=== PATIENT | male | born 1940 | race Caucasian/White ===

== ENCOUNTER 2017-05-31 11:52 | Inpatient (IN) | payer OTHER ==
[2017-05-31] MEDS ORDERED: IBUPROFEN 600 MG TAB PO ONE (12:57)
[2017-05-31] MEDS ORDERED: ONDANSETRON 4 MG/2 ML VIAL IVP ONE (13:04)
--- NOTE | 2017-05-31 13:12 | EDPHY ---
H & P Time Seen by Provider: 05/31/17 12:02 HPI/ROS: Chief complaint. Fall off horse HPI. 77-year-old male presents emergency department with after fall off horse. The horse bucked and he fell off and ended up with his head under the fence. Apparent loss of consciousness for unknown duration. Patient complains of pain to the back of his head as well as his neck as well as his left hip area. Denies chest pain or trouble breathing. No abdominal pain. Unable to walk since the injury occurred. ROS Constitutional. no fever/chills, no weakness Eyes. no problems with vision ENT. no sore throat, no nasal drainage Cardiovascular. no chest pain Respiratory. no shortness of breath, no cough Abdominal. no abdominal pain, no nausea/vomiting, no diarrhea . no problems urinating MS. neck pain, left hip pain Skin. no rash Lymph. no swollen glands Neuro. Decreased ability to walk and headache posteriorly Past Medical/Surgical History: Hypertension, dyslipidemia Social History: Single, nonsmoker, no alcohol Smoking Status: Never smoked Physical Exam: General Appearance: Alert well-developed male moderate distress vital signs are stable Eyes: Pupils equal and round no pallor or injection. ENT, no hemotympanum or Collazo sign. No oral pharyngeal or dental trauma. Respiratory: There are no retractions, lungs are clear to auscultation. Cardiovascular: Regular rate and rhythm. Gastrointestinal: Abdomen is soft and nontender, no masses, bowel sounds normal. Neurological: Awake and alert, sensory and motor exams grossly normal. Skin: Warm and dry, no rashes. Abrasion to the posterior scalp not requiring sutures Musculoskeletal: Neck is diffusely tender especially posteriorly. Left hip pain Extremities symmetrical, full range of motion. Psychiatric: Patient is oriented X 3, there is no agitation. Constitutional: Initial Vital Signs Temperature (C) 36.3 C 05/31/17 11:56 Heart Rate 76 05/31/17 11:56 Respiratory Rate 18 05/31/17 11:56 Blood Pressure 132/67 H 05/31/17 11:56 O2 Sat (%) 100 05/31/17 11:56 O2 Delivery Mode Room Air Allergies/Adverse Reactions: Penicillins Allergy (Unknown, Verified 10/26/12 09:58) Home Medications: Medication Instructions Recorded Atorvastatin Calcium [Lipitor 80 80 mg PO HS 11/04/17 mg] Lisinopril [Zestril 40 mg (*)] 40 mg PO HS 05/31/17 Terazosin HCl [Hytrin 2 MG (*)] 4 mg PO BID 05/31/17 Medical Decision Making - Diagnostics Imaging Results: Imaging Impressions Head CT 05/31/17 11:59 Impression: 1. Small foci of subarachnoid hemorrhage left posterior frontal lobe superiorly in a parasagittal location and anteriorly, in the central sulcus, as well as anterior to the left temporal lobe. 2. No intraparenchymal hemorrhage or subdural hemorrhage seen. 3. No calvarial fracture. Findings discussed with Abram Handley M.D. at 12:55 hour, 05/31/2017. Hip X-Ray 05/31/17 11:59 Impression: 1. Diastases of the symphysis and left SI joint. 2. Possible avulsion fracture just inferior and lateral to the left ischium. If indicated, consider CT imaging for further characterization. Cervical Spine CT 05/31/17 12:01 Impression: 1. No acute abnormality seen about the cervical spine. 2. Degenerative disk disease most prominent at C5-C6 and at C6-C7 with associated spinal and neuroforaminal stenoses. Abdomen CT 05/31/17 13:04 Impression: 1. Moderate diastases of the symphysis with mild diastases of the left SI joint. A portion of the bladder extends between the symphysis. 2. Mild soft tissue contusion along the left pelvic sidewall and associated with the symphysis diastases. 3. Granular material within the dependent aspect of the bladder as well as a small 2 mm bladder calculus. 4. Nonobstructive calculus lower pole left kidney along with bilateral renal cysts evident. Chest X-Ray 05/31/17 13:04 Impression: 1. No active cardiopulmonary disease seen. CT pelvis and abdomen shows moderate diastasis of the symphysis pubis and then diastasis of the left SI joint. Procedures: IV normal saline, monitor. Morphine for pain. Zofran for nausea ED Course/Re-evaluation: Re-evaluation patient is stable. He and I discussed imaging study results, treatment plan including need for Admission. He expresses understanding and agreement I have consulted and discussed the case with Dr. Villela on-call for trauma surgery who will see the patient in the emergency department I consulted discussed the case with Dr. Mares, orthopedics who will see The patient in the emergency department. I consulted and discussed the case with Dr. Bhardwaj, neurosurgery who will see the patient in the emergency department Differential Diagnosis: I considered intracranial bleeding and skull fracture. Cervical spine injury. Intra-abdominal and pelvis injury. - Data Points Laboratory Results: Laboratory Results 05/31/17 13:10 05/31/17 13:10 05/31/17 05/31/17 05/31/17 13:10 13:10 13:10 WBC 11.71 10^3/uL H 10^3/uL (3.80-9.50) RBC 4.39 10^6/uL L 10^6/uL (4.40-6.38) Hgb 14.6 g/dL g/dL (13.7-17.5) Hct 41.4 % % (40.0-51.0) MCV 94.3 fL fL (81.5-99.8) MCH 33.3 pg pg (27.9-34.1) MCHC 35.3 g/dL g/dL (32.4-36.7) RDW 12.6 % % (11.5-15.2) Plt Count 163 10^3/uL 10^3/uL (150-400) MPV 10.7 fL fL (8.7-11.7) Neut % (Auto) 81.4 % H % (39.3-74.2) Lymph % (Auto) 10.3 % L % (15.0-45.0) [place] % (Auto) 6.7 % % (4.5-13.0) Eos % (Auto) 0.8 % % (0.6-7.6) Baso % (Auto) 0.3 % % (0.3-1.7) Nucleat RBC Rel Count 0.0 % % (0.0-0.2) Absolute Neuts (auto) 9.54 10^3/uL H 10^3/uL (1.70-6.50) Absolute Lymphs (auto) 1.21 10^3/uL 10^3/uL (1.00-3.00) Absolute Monos (auto) 0.78 10^3/uL 10^3/uL (0.30-0.80) Absolute Eos (auto) 0.09 10^3/uL 10^3/uL (0.03-0.40) Absolute Basos (auto) 0.03 10^3/uL 10^3/uL (0.02-0.10) Absolute Nucleated RBC 0.00 10^3/uL 10^3/uL (0-0.01) Immature Gran % 0.5 % % (0.0-1.1) Immature Gran # 0.06 10^3/uL 10^3/uL (0.00-0.10) PT 15.0 SEC SEC (12.0-15.0) INR 1.18 H (0.83-1.16) APTT 25.8 SEC SEC (23.0-38.0) Sodium 147 mEq/L H mEq/L (134-144) Potassium 4.6 mEq/L mEq/L (3.5-5.2) Chloride 111 mEq/L H mEq/L (97-110) Carbon Dioxide 25 mEq/l mEq/l (22-31) Anion Gap 11 mEq/L mEq/L (8-16) BUN 22 mg/dL mg/dL (7-23) Creatinine 1.2 mg/dL mg/dL (0.7-1.3) Estimated GFR 59 Glucose 106 mg/dL H mg/dL (70-100) Calcium 9.6 mg/dL mg/dL (8.5-10.4) Medications Given: Morphine Sulfate (Morphine) 1 - 2 mg IVP Q1HR PRN PRN Reason: Pain, Severe Unable to Take PO Stop: 06/10/17 14:13 Last Admin: 05/31/17 15:00 Dose: 2 mg Discontinued Medications Ibuprofen (Motrin) 600 mg PO EDNOW ONE Stop: 05/31/17 12:58 Last Admin: 05/31/17 13:02 Dose: Not Given Morphine Sulfate (Morphine) 6 mg IVP EDNOW ONE Stop: 05/31/17 13:05 Last Admin: 05/31/17 13:14 Dose: 6 mg Ondansetron HCl (Zofran) 4 mg IVP EDNOW ONE Stop: 05/31/17 13:05 Last Admin: 05/31/17 13:14 Dose: 4 mg Departure - Departure Disposition: [facility] Acute Clinical Impression: Multiple trauma Condition: Good
[2017-05-31 13:17] LABS: PLATELET COUNT 163 10^3/uL (150-400)
[2017-05-31 13:27] LABS: INR 1.18 (0.83-1.16)
[2017-05-31] MEDS ORDERED: IOPAMIDOL (ISOVUE-300) 100 ML BTL ONE (13:42)
[2017-05-31] MEDS ORDERED: ONDANSETRON 4 MG/2 ML VIAL IVP PRN ×3 (14:14→19:01)
[2017-05-31] MEDS ORDERED: HYDROCODONE/APAP 5/325 TAB PO PRN (14:14)
[2017-05-31] MEDS ORDERED: ACETAMINOPHEN 325 MG TAB PO PRN (14:14)
--- NOTE | 2017-05-31 14:38 | GCON ---
[f rep st] CONSULTATION DATE OF CONSULTATION: 05/31/2017 REFERRING PHYSICIAN: Abram Handley MD REASON FOR EVALUATION: Trauma. 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 He reports getting thrown beneath the fence. He denies loss of consciousness to my exam. Per ED records, he was possibly amnestic to the immediate events surrounding the fall. He reports that he was ambulatory with complaints of left hip pain only after the injury. At present time, he is without headaches, visual changes, nausea, or vomiting. He denies neck pain. He reports chronic left shoulder pain, which is unchanged since the fall. He denies chest pains or shortness of breath. He denies abdominal complaints. He does report of left lower quadrant/hip pain. PAST MEDICAL HISTORY: Hypertension, hyperlipidemia. PAST SURGICAL HISTORY: Denies. MEDICATIONS: Uncertain antihypertensive, as well as a cholesterol med. ALLERGIES: Penicillin. SOCIAL HISTORY: He lives independently in a 2-story house. Denies significant alcohol use. Denies smoking. FAMILY HISTORY: Noncontributory. PHYSICAL EXAMINATION: VITAL SIGNS: Temperature 36, blood pressure 130/70, pulse 76, respirations 18. GENERAL: Patient is alert, appropriate, comfortable at the present time. HEENT: Superficial occipital scalp laceration. NECK: Minimal cervical spine tenderness, not increased with head rotation. Trachea midline without crepitus. HEART: Regular without murmurs. LUNGS: Clear bilaterally. CHEST WALL: Nontender without step-offs or deformities. ABDOMEN: Soft, nontender, nondistended. No abdominal ecchymosis. Minimal pubic tenderness. EXTREMITIES: Mild left hip tenderness. Normal bilateral upper and lower extremities without step-offs, deformities, or abrasions. Radial as well as dorsalis pedis and posterior tibial pulses 2+ bilaterally. BACK: Nontender thoracic spine. Notable lower lumbar spine tenderness and sacral tenderness. IMAGING: Head CT with multiple areas of scattered subarachnoid hemorrhages. No shift. No subdural, intraparenchymal, or epidural hematoma. AP hip with left SI joint and pubic symphysis diastasis. CT cervical spine: Unremarkable other than chronic degenerative disease. Images were directly reviewed on PACS with radiologist on-call. LABORATORY: White count 12, hemoglobin 15, platelets of 160. INR 1.18. Electrolytes within reference range. IMPRESSION: 1. Fall from horse. 2. Small subarachnoid hemorrhage without neurologic compromise. 3. Left sacroiliac and pubic symphysis diastasis. 4. Superficial occipital abrasion. PLAN: 1. Patient is being admitted for further evaluation and management. 2. Serial head imaging will be performed. Neck was clinically cleared by Dr. Bhardwaj from Neurosurgical Service. 3. Further abdominopelvic CT imaging pending for further assessment of pelvic diastasis. 4. Activity plans to be determined post imaging. 5. Patient was seen and evaluated by Dr. Mares in the emergency room. No other acute traumatic issues identified at this time. 6. Care plan was reviewed with the patient, brother, colleague, Dr. Mares, Dr. Bhardwaj, as well as with Dr. Handley. /[id number]/MODL MTDD
[2017-05-31] MEDS ORDERED: BUPIVACAINE 0.5% 30 ML SDV ONE (16:21)
[2017-05-31] MEDS ORDERED: BACITRACIN 50,000 UNITS/10 ML SYR IRR ONE (16:22)
[2017-05-31] MEDS ORDERED: POLYMYXIN B SULFATE 500,000 UNIT/10 ML SYR IRR ONE (16:22)
--- NOTE | 2017-05-31 16:36 | PDANEPAE ---
ANE History of Present Illness 77 yo for orif pelvis ANE Past Medical History - Cardiovascular History Hx Hypertension: Yes Hx Arrhythmias: No Hx Chest Pain: No Hx Coronary Artery / Peripheral Vascular Disease: No Hx CHF / Valvular Disease: No Hx Palpitations: No - Pulmonary History Hx COPD: No Hx Asthma/Reactive Airway Disease: No Hx Recent Upper Respiratory Infection: No Hx Oxygen in Use at Home: No Hx Sleep Apnea: No - Endocrine History Hx Diabetes: No - Chronic Pain History Chronic Pain: No ANE Review of Systems Review of Systems: - Exercise capacity METS (RN): 4 METS ANE Patient History - Allergies Allergies/Adverse Reactions: Penicillins Allergy (Unknown, Verified 10/26/12 09:58) - Home Medications Home Medications: Atorvastatin Calcium [Lipitor 80 mg] 80 mg PO HS 05/31/17 [Last Taken 05/30/17] Lisinopril [Zestril 40 mg (*)] 40 mg PO HS 05/31/17 [Last Taken 05/30/17] Terazosin HCl [Hytrin 2 MG (*)] 4 mg PO BID 05/31/17 [Last Taken 05/31/17] - Anes Hx Anes Hx: no prior problems - Smoking Hx Smoking Status: Never smoked ANE Labs/Vital Signs - Labs Result Diagrams: 05/31/17 13:10 05/31/17 13:10 - Vital Signs Blood Pressure: 122/54 Heart Rate: 83 Respiratory Rate: 18 O2 Sat (%): 92 Height: 5 ft 10 in Weight: 83.915 kg ANE Physical Exam - Airway Mallampati Score: Class 2 Mouth exam: normal dental/mouth exam - Pulmonary Pulmonary: no respiratory distress - Cardiovascular Cardiovascular: regular rate and rhythym - ASA Status ASA Status: II, E ANE Anesthesia Plan Anesthesia Plan: general endotracheal anesthesia
[2017-05-31] MEDS ORDERED: fentaNYL 100 MCG/2 ML INJ ONE (16:39)
[2017-05-31] MEDS ORDERED: REMIFENTANIL HCL 1 MG VIAL ONE (16:39)
[2017-05-31] MEDS ORDERED: PROPOFOL/EMULSION 500 MG/50 ML BOTTLE IV ONE (16:40)
[2017-05-31] MEDS ORDERED: ROCURONIUM 100 MG/10 ML VIAL ONE (16:42)
[2017-05-31] MEDS ORDERED: ceFAZolin 2 GM/DEXTROSE 100 ML IV ONE (16:46)
[2017-05-31] MEDS ORDERED: ceFAZolin 2 GM/SWFI 20 ML SYR IVP ONE (16:46)
--- NOTE | 2017-05-31 16:48 | GCON ---
[f rep st] CONSULTATION ORTHOPEDIC CONSULTATION DATE OF CONSULTATION: 05/31/2017 REASON FOR CONSULTATION: Pelvic fracture dislocation with diastasis of anterior pubic symphysis and widening of the left sacroiliac articulation. 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 He went face down and hit a fence. He indicates he was a little stunned, but did not feel he lost consciousness. He had difficulty bearing weight. He has s ignificant pain in his left hip. He was brought to the emergency room alert and oriented. PAST MEDICAL HISTORY: Positive for hypertension, hyperlipidemia. PAST SURGICAL HISTORY: None. MEDICATIONS: Uncertain type of antihypertensive and cholesterol medication. ALLERGIES: To penicillin. SOCIAL HISTORY: He resides alone in a two-story house. Nonsmoker. Minimal alcohol use. PHYSICAL EXAMINATION: GENERAL: Patient is alert, oriented, and cooperative exam. CHEST: Clear to auscultation. CARDIAC: Regular rate and rhythm. ABDOMEN: Decreased bowel sounds. No tympany. Th ere is no significant rebound tenderness. MUSCULOSKELETAL: Moderate tenderness with compression ove r the anterior iliac crests. Mild tenderness in the symphysis pubis. No catheter in place. He has tenderness over the left sacroiliac joint and left paraspinal area. He is able to move the legs. Se nsation is intact to light touch in all dermatomes. Pulses 2+ dorsalis pedis, posterior tibialis. IMAGING DATA: Head CT shows small areas of scattered subarachnoid hemorrhage. There is no shift. N o subdural. No intraparenchymal bleed. No epidural hematoma. X-rays of the pelvis show pubic symph ysis diastasis of approximately 6 cm. There is widening of the left SI joint seen both on plain film s and CT scan of the pelvis. CT of the abdomen shows no obvious intraabdominal bleed. The bladder i s mildly distended and pressing against the open symphysis. ASSESSMENT: Pelvic diastasis secondary to separation of pubic symphysis and widening of the left sac roiliac articulation. PLAN: We anticipate performing an open reduction internal fixation of the pubic symphyseal injury wi th plating. Dr. Scott has been consulted, along with me, and we will proceed with the surgery this ev ening. Patient will require use of a walker and therapy to mobilize afterwards. Anticipate placing a Chadwick after anesthesia is performed. /[id number]/MODL
[2017-05-31] MEDS ORDERED: ceFAZolin 2 GM/SWFI 2 GM/20 ML SYR IVP ONE (17:00)
--- NOTE | 2017-05-31 17:08 | GCON ---
[f rep st] CONSULTATION DATE OF CONSULTATION: 05/31/2017 Patient was seen and evaluated at approximately 1:15 p.m. in the [facility] Emergency Department. HISTORY OF PRESENT ILLNESS: The patient is a 77-year-old man who was riding a horse and was bucked o ff. He may have had a very brief loss of consciousness, but he is not amnestic to the event and bony mbers pretty much everything. He was complaining of pelvic and hip pain but really no other complain ts at this time. He presented to the emergency department where he was found to have diastasis of th e pubic symphysis as well as some scattered tiny traumatic subarachnoid hemorrhage. There is no mass effect or shift. He denies any chest pain or shortness of breath. No nausea, vomiting, or abdomina l pain. REVIEW OF SYSTEMS: A 10-point review of systems is negative other than that described in the HPI. PAST MEDICAL HISTORY: 1. Hypertension. 2. Hyperlipidemia. FAMILY HISTORY: Reviewed but noncontributory to this admission. SOCIAL HISTORY: The patient is single. He denies any tobacco, alcohol, or other drug use. ALLERGIES: Penicillin. MEDICATIONS: 1. Atorvastatin. 2. Lisinopril. 3. Terazosin. PHYSICAL EXAMINATION: VITAL SIGNS: Currently, he is afebrile with normal stable vital signs. CONST ITUTIONAL: Awake, alert, and oriented x3. HEENT: Pupils equal, round, and reactive to light. Extr aocular movements are intact. Face is symmetric. Tongue is midline. He has a laceration on the johnny k of the head, which appears to be relatively small. NEUROMUSCULAR: He has full 5/5 strength in all muscle groups of the upper and lower extremities; although, he does appear to have some mild weaknes s at the hip flexor, which is likely secondary to the pain of his pubic diastasis. Sensation is inta ct. Deep tendon reflexes are normal. IMAGING REVIEW: See HPI. A cervical spine CT was also negative for any fractures and positive only for some degenerative disease at multiple levels. LABORATORY REVIEW: White count 11.7, hemoglobin 14.6, hematocrit 41.4, platelet count 163,000. PT i s 15, INR is 1.18. Sodium is 147, potassium 4.6, BUN is 22, creatinine 1.2, glucose 106. ASSESSMENT/PLAN: The patient is a 77-year-old man who was thrown from a horse with a positive loss o f consciousness. He has some very tiny traumatic subarachnoid hemorrhage. [facility] service, and would be fine for general care status with q.4 hour vitals a nd neuro checks. We will repeat his CAT scan sometime later this evening to be sure that everything is stable, and otherwise just monitor his clinical exam. I do not think he needs any seizure prophyl axis or other intervention at this time. We will follow along while he is in the hospital. Thanks for the kind consultation. Sincerely, /[id number]/MODL
[2017-05-31] MEDS ORDERED: ALBUMIN 5% 250 ML BOTTLE IV ONE (17:24)
[2017-05-31] MEDS ORDERED: HYDROmorphONE/DILAUDID 2 MG/ML INJ ONE (17:52)
[2017-05-31] MEDS ORDERED: diphenhydrAMINE 25 MG CAP PO PRN (18:56)
[2017-05-31] MEDS ORDERED: PROMETHAZINE HCL 25 MG/ML INJ IVP PRN (18:56)
[2017-05-31] MEDS ORDERED: METOCLOPRAMIDE 10 MG/2 ML VIAL IVP PRN (18:56)
[2017-05-31] MEDS ORDERED: PROMETHAZINE HCL 25 MG SUPPR PR PRN (18:56)
[2017-05-31] MEDS ORDERED: ONDANSETRON DISINTEGRATING 4 MG TAB PO PRN (18:56)
[2017-05-31] MEDS ORDERED: DIPHENOXYLATE/ATROPINE LOMOTIL 1 TAB PO PRN (18:56)
[2017-05-31] MEDS ORDERED: TEMAZEPAM 15 MG CAP PO PRN (18:56)
[2017-05-31] MEDS ORDERED: CYCLOBENZAPRINE 10 MG TAB PO PRN (18:56)
[2017-05-31] MEDS ORDERED: LR 1,000 ML IV SCH (19:00)
[2017-05-31] MEDS ORDERED: NALOXONE HCL 0.4 MG/ML INJ IVP PRN (19:01)
[2017-05-31] MEDS ORDERED: HYDROmorphONE/DILAUDID 1 MG/ML INJ IVP PRN (19:01)
[2017-05-31] MEDS ORDERED: fentaNYL 100 MCG/2 ML INJ IVP PRN (19:01)
--- NOTE | 2017-05-31 19:02 | POSTANESTH ---
Post Anesthetic Evaluation Cardiovascular Status: Normal, Stable Respiratory Status: Normal, Stable Level of Consciousness/Mental Status: Can Participate in Eval Pain Control: Adequate, Prn Tx Ordered Nausea/Vomiting Control: Adequate, Prn Tx Ordered Complications Possibly Related to Anesthesia: None Noted
[2017-05-31] MEDS: ATORVASTATIN CALCIUM 40 MG TAB PO SCH (20:28)
[2017-05-31] MEDS: ACETAMINOPHEN 325 MG TAB PO SCH (20:28)
[2017-05-31] MEDS: oxyCODONE IR 5 MG TAB PO PRN (20:29)
[2017-05-31] MEDS: TERAZOSIN HCL 2 MG CAP PO SCH (20:30)
[2017-05-31] MEDS: LISINOPRIL 40 MG TAB PO SCH (20:30)
[2017-05-31] MEDS: FAMOTIDINE 20 MG TAB PO SCH (20:31)
--- NOTE | 2017-05-31 20:33 | GOP ---
[f rep st] OPERATIVE REPORT DATE OF OPERATION: 05/31/2017 SURGEON: Scott Mares MD ANESTHESIA: General. PREOPERATIVE DIAGNOSIS: Pubic symphysis diastasis with diastasis of left sacroiliac articulation. POSTOPERATIVE DIAGNOSIS: Pubic symphysis diastasis with diastasis of left sacroiliac articulation. PROCEDURE PERFORMED: Open reduction and internal fixation, pelvic fracture dislocation (pubic symphy sis diastasis with anterior plating). FINDINGS: DESCRIPTION OF PROCEDURE: Patient was taken to the operating room, administered general anesthesia, placed in the supine position. FluoroScan was positioned. Anterior incision was made through dermal , subcutaneous tissues. The linea alba fascia was delineated and the rectus was reflected. The ante rior aspect of the musculature coming off the symphysis was already exposed. The clotted blood and t issue were cleared off. The symphysis was cleared off superiorly and anteriorly. Two 4.5 screws wer e passed through each side of the pubic symphysis. These were used to clamp down the symphysis. Whe n we obtained anatomic reduction, the plate was then contoured to fit the pubic symphysis. Drill hol es were then placed across the symphysis on each side. Three 3.5 screws were utilized on each side o f the symphysis to secure the contoured plate. Intraoperative films were taken and screw lengths wer e assessed and felt to be appropriate. The symphysis was felt to be appropriately reduced. Thorough lavage performed with normal saline. The rectus abdominis fascia was closed with #1 Vicryl suture, followed by closure of the subcutaneous tissue with 2-0 Vicryl suture, followed by closure of the aixa mis with destiny. A sterile compression dressing was applied. The patient tolerated procedure well, was transferred back to Recovery in stable condition. No operative complications. IMPLANTS: 3.5 Synthes plate. CO-SURGEONS: Anika Scott MD/Scott Mares MD COMPLICATIONS: None. /[id number]/MODL
[2017-05-31] MEDS ORDERED: NON-FORMULARY NEW DRUG (Atorvastatin Calcium [Lipitor 80 Mg] 80 MG) PO SCH (21:00)
[2017-06-01] MEDS: oxyCODONE IR 5 MG TAB PO PRN ×3 (02:58→22:08)
[2017-06-01] MEDS: ceFAZolin 2 GM/DEXTROSE 100 ML IV SCH ×2 (02:59→09:39)
[2017-06-01] MEDS: ACETAMINOPHEN 325 MG TAB PO SCH ×3 (06:45→18:40)
--- NOTE | 2017-06-01 08:46 | SOAPPROG ---
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/ PUBIC RAMUS DIASTASIS SP ORIF SMALL SAH NEURO STABLE ABD SOFT AFEBRILE TERTIARY EXAM NEG CHEST CLEAR COR RR EXTR FULL PULSES Plan:?AMBULATE/ WILL NEED LOVENOX SOON 06/01/17 08:44 06/01/17 14:03 Objective: Vital Signs Temp Pulse Resp BP Pulse Ox 36.7 C 73 16 125/50 H 99 06/01/17 08:19 06/01/17 08:19 06/01/17 08:19 06/01/17 08:19 06/01/17 08:19 Laboratory Results 06/01/17 04:30 06/01/17 04:30 05/31/17 06/01/17 06/02/17 06:59 05:59 05:59 Intake Total Output Total Balance PT 15.0 SEC (12.0-15.0) 05/31/17 13:10 INR 1.18 (0.83-1.16) H 05/31/17 13:10 ICD10 Worksheet Patient Problems: Problems Problem Status Onset Multiple trauma Acute
--- NOTE | 2017-06-01 08:55 | SOAPPROG ---
[facility] Progress Note Assessment/Plan: Assessment: HD#1 s/p admit after fall from horse with tiny tSAH, pubic injury Plan: - followup scan stable - doing well, no headaches - no need for further scans unless some neurological change - no need for neurosurgical followup, but I'd be happy to see him if needed at any point - will sign off for now, please call with any questions or concerns 06/01/17 08:53 Subjective: no complaints Objective: Vital Signs Temp Pulse Resp BP Pulse Ox 36.7 C 73 16 125/50 H 99 06/01/17 08:19 06/01/17 08:19 06/01/17 08:19 06/01/17 08:19 06/01/17 08:19 Laboratory Results 06/01/17 04:30 06/01/17 04:30 05/31/17 06/01/17 06/02/17 06:59 05:59 05:59 Intake Total Output Total Balance PT 15.0 SEC (12.0-15.0) 05/31/17 13:10 INR 1.18 (0.83-1.16) H 05/31/17 13:10 AAOx3, full strength/sensation, no drift - Pending Discharge Pending Discharge Within 24 Hours: Yes Pending Discharge Within 48 Hours: Yes Pending Discharge Date: 06/02/17 Pending Discharge Time: 11:00 ICD10 Worksheet Patient Problems: Problems Problem Status Onset Multiple trauma Acute
[2017-06-01] MEDS: FAMOTIDINE 20 MG TAB PO SCH ×2 (09:39→22:04)
[2017-06-01] MEDS: TERAZOSIN HCL 2 MG CAP PO SCH ×2 (09:48→20:25)
--- NOTE | 2017-06-01 11:02 | SOAPPROG ---
SOAP Progress Note Assessment/Plan: Assessment:POD #1 ORIF pelvic fracture dislocation (pubic symphysis disastasis with anterior plating). Had small SAH, improving. Cleared by Neurosurgery unless symptoms change. Plan: Continue pain medication, transition to oral meds when able. PT/OT to evaluate-pt. feels ready to get up and try moving. WBAT with walker Ice packs to incision prn Dressing change tomorrow or sooner if needed Continue to monitor pts. calf pain, if worsening consider US to r/o DVT. Continue Antibiotics S: Pt. states that his pain is well controlled with the medication he has been given since surgery. He reports mild pain from the hips. Also reports some bilateral calf tightness, not worsening. Not sure if he injured the lower legs in the fall. No fever, REDMAN, CP, SOB. abdominal pain, N/V. Was able to eat breakfast without difficulty. O: Pt. resting comfortably, in NAD, answers all questions appropriately. Respirations unlabored. Pt. is DNVI in BLE. Mild calf pain to squeeze bilateral calves, no swelling or warmth palpated. Dressing on abdomen is intact with no discharge. 06/01/17 10:54 Objective: Vital Signs Temp Pulse Resp BP Pulse Ox 36.7 C 73 16 125/50 H 99 06/01/17 08:19 06/01/17 08:19 06/01/17 08:19 06/01/17 08:19 06/01/17 08:19 Laboratory Results 06/01/17 04:30 06/01/17 04:30 05/31/17 06/01/17 06/02/17 06:59 05:59 05:59 Intake Total Output Total Balance PT 15.0 SEC (12.0-15.0) 05/31/17 13:10 INR 1.18 (0.83-1.16) H 05/31/17 13:10 ICD10 Worksheet Patient Problems: Problems Problem Status Onset Multiple trauma Acute
--- NOTE | 2017-06-01 14:03 | ASMTCMCOM ---
CM Note CM Note Notes: Pt admitted with pelvic fx after fall from horse. Pt had ORIF. OT evals are home vs home care. No PT evals yet. CM will follow for DC needs. Date Signed: 06/01/2017 02:03 PM Electronically Signed By:Alexandra Bird LCSW
[2017-06-01] MEDS ORDERED: LACTULOSE 20 GM/30 ML UDCUP PO PRN (16:40)
[2017-06-01] MEDS ORDERED: BISACODYL 10 MG SUPP PR PRN (16:40)
[2017-06-01] MEDS ORDERED: MAGNESIUM HYDROXIDE 30 ML UDCUP PO PRN (16:40)
[2017-06-01] MEDS ORDERED: POLYETHYLENE GLYCOL 3350 17 GM PKT PO PRN (16:40)
[2017-06-01] MEDS: SENNOSIDES/DOCUSATE SODIUM TAB PO SCH (20:24)
[2017-06-01] MEDS: ATORVASTATIN CALCIUM 40 MG TAB PO SCH (20:24)
[2017-06-01] MEDS: LISINOPRIL 40 MG TAB PO SCH (20:24)
[2017-06-02] MEDS: ACETAMINOPHEN 325 MG TAB PO SCH ×4 (00:49→17:52)
--- NOTE | 2017-06-02 07:36 | SOAPPROG ---
SOAP Progress Note Assessment/Plan: Assessment/Plan: Pelvic fracture/dislocation s/p ORIF pelvic fracture dislocation (pubic symphysis disastasis with anterior plating), POD#2 - Cont PT/OT, WBAT, ambulate with walker - Cont current pain meds as tolerated, cont to encourage PO, ice PRN - Had small SAH, improving. Cleared by Neurosurgery unless symptoms change. - Cont SCDs and TEDs for VTE mechanical prophylaxis - Will defer to trauma for anticoagulation given SAH - Ok to d/c from ortho standpoint given PT/OT approval 06/02/17 07:33 Subjective: Pt seen up in chair today. He has no complaints of significant pain at this time. He denies any jordan, cp, sob, abd pain, new onset n/t or bilat calf pain. He states he is tolerating his diet and medications well, and feels he is progressing with PT. He is anxious to go home. He has no additional concerns or complaints at this time. Objective: Vital Signs Temp Pulse Resp BP Pulse Ox 36.6 C 73 15 145/69 H 94 06/02/17 04:00 06/02/17 04:00 06/02/17 04:00 06/02/17 04:00 06/02/17 04:00 Laboratory Results 06/02/17 04:32 06/01/17 04:30 06/01/17 06/02/17 06/03/17 05:59 05:59 05:59 Intake Total 1165 Output Total 1700 Balance -535 PT 15.0 SEC (12.0-15.0) 05/31/17 13:10 INR 1.18 (0.83-1.16) H 05/31/17 13:10 Pt seen up in chair. He is A&Ox3, appropriate mood and affect, pleasant and cooperative with exam. Pt is in NAD, non toxic in appearance, respirations unlabored. Lower abdominal dressing is intact, clean and dry, no surrounding erythema, calor, discharge or induration. Pt moves legs/ankles/feet/toes well. SCDs and TEDs bedside. Post calves are NTTP bilaterally, no palpable vascular cords, neg Cipriano's bilat. DNVI BLE. ICD10 Worksheet Patient Problems: Problems Problem Status Onset Multiple trauma Acute
[2017-06-02 07:57] VITALS: PULSE 75; RESP 14; O2SAT 95
[2017-06-02] MEDS: FAMOTIDINE 20 MG TAB PO SCH (09:57)
[2017-06-02] MEDS: TERAZOSIN HCL 2 MG CAP PO SCH (09:58)
[2017-06-02] MEDS: SENNOSIDES/DOCUSATE SODIUM TAB PO SCH (09:58)
[2017-06-02] MEDS: oxyCODONE IR 5 MG TAB PO PRN ×2 (10:42→17:52)
[2017-06-02 12:03] VITALS: BP 121/70; TEMP 98.2
--- NOTE | 2017-06-03 14:15 | ASDISCHSUM ---
Discharge Information Plan Status:Home with No Needs Medically Cleared to Leave: Discharge Date:06/02/2017 06:02 PM CM D/C Disposition:Home, Routine, Self-Care ADT D/C Disposition:Home, Routine, Self-Care Projected Discharge Date:06/02/2017 06:02 PM Transportation at D/C: Discharge Delay Reason: Follow-Up Date:06/02/2017 06:02 PM Discharge Slot: Final Diagnosis: Placement Information Patient Contact Information Contact Name:JADE Relationship: Address:[address] Work Phone: [facility]:[place] Alternate Phone: [facility] Code:[place] [address] Email: Financial Information Financial Class: Primary Plan Desc:MEDICARE INPATIENT Primary Plan Number:[id number] Secondary Plan Desc:[employer] INSURANCE Secondary Plan Number:[id number] Assessment Information [facility] CM Progress Note CM Note CM Note Notes: Pt admitted with pelvic fx after fall from horse. Pt had ORIF. OT evals are home vs home care. No PT evals yet. CM will follow for DC needs. Date Signed: 06/01/2017 02:03 PM Electronically Signed By:Alexandra Bird LCSW [facility] CM Progress Note CM Note CM Note Notes: Therapies clear pt, no CM d/c needs identified. Date Signed: 06/03/2017 02:14 PM Electronically Signed By:MIKE Cherry Intervention Information
--- NOTE | 2017-06-03 14:15 | ASDISCHSUM ---
Discharge Information Plan Status:Home with No Needs Medically Cleared to Leave: Discharge Date:06/02/2017 06:02 PM CM D/C Disposition:Home, Routine, Self-Care ADT D/C Disposition:Home, Routine, Self-Care Projected Discharge Date:06/02/2017 06:02 PM Transportation at D/C: Discharge Delay Reason: Follow-Up Date:06/02/2017 06:02 PM Discharge Slot: Final Diagnosis: Placement Information Patient Contact Information Contact Name:JADE Relationship: Address:[address] Work Phone: [facility]:[place] Alternate Phone: [facility] Code:[place] [address] Email: Financial Information Financial Class: Primary Plan Desc:MEDICARE INPATIENT Primary Plan Number:[id number] Secondary Plan Desc:[employer] INSURANCE Secondary Plan Number:[id number] Assessment Information [facility] CM Progress Note CM Note CM Note Notes: Pt admitted with pelvic fx after fall from horse. Pt had ORIF. OT evals are home vs home care. No PT evals yet. CM will follow for DC needs. Date Signed: 06/01/2017 02:03 PM Electronically Signed By:Alexandra Bird LCSW [facility] CM Progress Note CM Note CM Note Notes: Therapies clear pt, no CM d/c needs identified. Date Signed: 06/03/2017 02:14 PM Electronically Signed By:MIKE Cherry Intervention Information
--- NOTE | 2017-06-03 14:15 | ASDISCHSUM ---
Discharge Information Plan Status:Home with No Needs Medically Cleared to Leave: Discharge Date:06/02/2017 06:02 PM CM D/C Disposition:Home, Routine, Self-Care ADT D/C Disposition:Home, Routine, Self-Care Projected Discharge Date:06/02/2017 06:02 PM Transportation at D/C: Discharge Delay Reason: Follow-Up Date:06/02/2017 06:02 PM Discharge Slot: Final Diagnosis: Placement Information Patient Contact Information Contact Name:JADE Relationship: Address:[address] Work Phone: [facility]:[place] Alternate Phone: [facility] Code:[place] [address] Email: Financial Information Financial Class: Primary Plan Desc:MEDICARE INPATIENT Primary Plan Number:[id number] Secondary Plan Desc:[employer] INSURANCE Secondary Plan Number:[id number] Assessment Information [facility] CM Progress Note CM Note CM Note Notes: Pt admitted with pelvic fx after fall from horse. Pt had ORIF. OT evals are home vs home care. No PT evals yet. CM will follow for DC needs. Date Signed: 06/01/2017 02:03 PM Electronically Signed By:Alexandra Bird LCSW [facility] CM Progress Note CM Note CM Note Notes: Therapies clear pt, no CM d/c needs identified. Date Signed: 06/03/2017 02:14 PM Electronically Signed By:MIKE Cherry Intervention Information
== END 2017-06-02 18:02 | disposition home or self-care (01) | DRG 515 ==
LOC: F3N 14:54
PROVIDERS: ADMIT Surgery; ATTEND Surgery
PROC: 0SS Lower Joints, Reposition (ICD-10-PCS; principal; 2017-05-31 17:00)
DX: S33.2XXA Dislocation of sacroiliac and sacrococcygeal joint, initial encounter (principal); S06.6X9A Traumatic subarachnoid hemorrhage with loss of consciousness of unspecified duration, initial encounter; S33.4XXA Traumatic rupture of symphysis pubis, initial encounter; V80.010A Animal-rider injured by fall from or being thrown from horse in noncollision accident, initial encounter; Y93.52 Activity, horseback riding; E78.5 Hyperlipidemia, unspecified; I10 Essential (primary) hypertension
CPT/HCPCS: 92523-GN; 96374; 97116-GP; 97161-GP; 97165-GO; 97535-GO; C1713; G8978-GP-CJ; G8979-GP-CI; G8980-GP-CI; G8987-GO-CJ; G8988-GO-CI; G8989-GO-CI; G9165-GN-CI; G9166-GN-CI; J0690; J1170; J2405; J2704; J3010; P9041; Q9967